=== PATIENT | male | born 1985 | race Caucasian/White ===

== ENCOUNTER 2016-09-12 08:39 | Emergency (ER) | payer MEDICAID, OTHER, SELFPAY ==
[~2016-09-12] VITALS: Ht 172.7 cm; Wt 119.0 kg
[2016-09-12] MEDS ORDERED: IBUP600T26 PO (08:59)
--- NOTE | 2016-09-12 11:03 | REP ---
LEFT FOOT SERIES: Four views of the left foot performed. There is collapse of the navicular bone with heterogeneous increased density suggesting an old fracture and possible osteonecrosis. No other acute fracture or dislocation is seen of the visualized osseous structures. The joint spaces appear unremarkable. 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 Signed by Christian Dunham MD 09/12/2016 01:48 P
[2016-09-12 11:30] VITALS: BP 149/88
== END 2016-09-12 11:30 | disposition home or self-care (01) ==
LOC: M ED 09:16
DX: S92.202 Fracture of unspecified tarsal bone(s) of left foot (principal); M87.875 Other osteonecrosis, left foot; X58.XXXA Exposure to other specified factors, initial encounter; Y92.9 Unspecified place or not applicable; Y93.9 Activity, unspecified; Y99.9 Unspecified external cause status; Z87.81 Personal history of (healed) traumatic fracture